=== PATIENT | male | born 1990 | race Caucasian/White ===

== ENCOUNTER 2024-02-19 08:52 | Emergency (ER) | payer OTHER ==
[2024-02-19] MEDS ORDERED: Sodium Chloride 0.9% 10 ML Syringe FLUSH PRN (09:00)
[2024-02-19] MEDS ORDERED: Naloxone 2 MG/2 ML Syringe IVPUSH PRN (09:07)
[2024-02-19] MEDS: HYDROmorphone 2 MG/ML Syringe IVPUSH ONE ×2 (09:12→09:36)
[2024-02-19] MEDS: Ketorolac 30 MG/ML SDV IVPUSH ONE (09:24)
[2024-02-19 09:27] LABS: BASOPHILS ABSOLUTE AUTO 0.05 K/uL (0.02-0.10); BASOPHILS PERCENT AUTO 0.7 % (0.0-0.5); HEMATOCRIT 48.2 % (40.0-54.0); HEMOGLOBIN 15.8 g/dL (13.0-18.0); LYMPHOCYTES ABSOLUTE AUTO 1.92 K/uL (1.50-4.00); LYMPHOCYTES PERCENT AUTO 28.6 % (20.0-40.0); MEAN CORPUSCULAR HEMOGLOBIN 29.4 pg (27.0-32.0); MEAN CORPUSCULAR HGB CONC 32.8 g/dL (31.0-35.0); MEAN CORPUSCULAR VOLUME 90 fL (76-96); MEAN PLATELET VOLUME 10.5 fL (6.0-10.0); MONOCYTES ABSOLUTE AUTO 0.57 K/uL (0.20-0.80); MONOCYTES PERCENT AUTO 8.5 % (3.0-10.0); NEUTROPHILS ABSOLUTE AUTO 3.98 K/uL (2.00-7.50); NEUTROPHILS PERCENT AUTO 59.2 % (45.0-70.0); PLATELET COUNT,PLT 256 K/uL (150-400); RED BLOOD CELL COUNT 5.37 M/uL (4.50-6.50); RED CELL DISTRIBUTION WIDTH 14.9 % (11.0-16.0); WHITE BLOOD CELL COUNT,WBC 6.7 K/uL (4.0-11.0)
[2024-02-19 09:58] LABS: A/G RATIO 1.2 (0.8-2.0); ALANINE AMINOTRANSFERASE,ALT 36 U/L (12-78); ALBUMIN 4.4 g/dL (3.4-5.0); ALKALINE PHOSPHATASE 93 U/L (46-116); ANION GAP 14.8 mmol/L (5.0-15.0); ASPARTATE AMNIOTRANSFERASE,AST 27 U/L (15-37); BILIRUBIN TOTAL 0.6 mg/dL (0.0-1.0); BLOOD UREA NITROGEN,BUN 13 mg/dL (8-26); BUN/CREATININE RATIO 11.5 (6-25); CARBON DIOXIDE,CO2 27.2 mmol/L (21.0-32.0); CHLORIDE,CL 104 mmol/L (98-107); CREATININE 1.13 mg/dL (0.70-1.30); EST CRCL DRUG DOSING (CG) 91.24 mL/min; ESTIMATED GFR 87 mL/min (>60); GLUCOSE RANDOM 89 mg/dL (74-100); PROTEIN TOTAL,TP 8.2 g/dL (6.4-8.2); SODIUM,NA 142 mmol/L (136-145)
[2024-02-19 10:07] LABS: C-REACTIVE PROTEIN < 5.0 mg/L (<5.0)
== END 2024-02-19 10:15 | disposition home or self-care (01) ==
LOC: LB.ED 08:52
DX: M54.16 Radiculopathy, lumbar region (principal)
CPT/HCPCS: 36415; 72100; 80053; 85025; 86140; 96374; 96375; 99283-25; J1171; J1885